=== PATIENT | female | born 1940 | race Caucasian/White ===

== ENCOUNTER 2024-03-29 14:51 | Inpatient (IN) | payer OTHER ==
[~2024-03-29] VITALS: Ht 157.5 cm; Wt 94.5 kg
[2024-03-29] MEDS ORDERED: KETOROLAC TROMETHAMINE 15 MG INJ ONE (15:10)
[2024-03-29] MEDS ORDERED: METOCLOPRAMIDE HCL 10 MG/2 ML VIAL ONE (15:11)
[2024-03-29] MEDS: KETOROLAC TROMETHAMINE 15 MG INJ IVP ONE (15:16)
[2024-03-29] MEDS: METOCLOPRAMIDE HCL 10 MG/2 ML VIAL IV ONE (15:16)
[2024-03-29 15:18] LABS: BASOPHILS % (AUTO) 0.2 % (0.0-2.0); EOSINOPHILS % (AUTO) 0.2 % (0.0-7.0); HEMATOCRIT 47.5 % (31.2-41.9); HEMOGLOBIN 15.3 g/dL (10.9-14.3); LYMPHOCYTES % (AUTO) 4.3 % (20.5-51.5); MEAN CORPUSCULAR HEMOGLOBIN 26.6 uug (24.7-32.8); MEAN CORPUSCULAR HGB CONC 32 g/dL (32.3-35.6); MEAN CORPUSCULAR VOLUME 82.4 fL (75.5-95.3); MONOCYTES # (AUTO) 1.1 K/uL (0.1-1.30); MONOCYTES % (AUTO) 4.8 % (0.0-11.0); NEUTROPHILS # (AUTO) 21.4 K/uL (1.8-8.9); NEUTROPHILS % (AUTO) 90.5 % (38.5-71.5); PLATELET COUNT (AUTO) 255 K/uL (179-408); RED BLOOD CELL COUNT(AUTO) 5.76 MIL/uL (3.63-4.92); RED CELL DISTRIBUTION WIDTH 15.4 % (12.3-17.7); WHITE BLOOD COUNT (AUTO) 23.7 K/uL (3.8-11.8)
[2024-03-29] MEDS ORDERED: ACET325C7 PO (15:19)
[2024-03-29] MEDS ORDERED: BENZ200C53 PO (15:19)
[2024-03-29] MEDS ORDERED: MULT-594 PO (15:19)
[2024-03-29] MEDS ORDERED: CHOL500062 PO (15:19)
[2024-03-29] MEDS ORDERED: CYAN100T9 PO (15:19)
[2024-03-29] MEDS ORDERED: CALC600T35 PO (15:19)
[2024-03-29] MEDS ORDERED: ASPI81TA31 PO (15:19)
[2024-03-29] MEDS ORDERED: GABA300C PO (15:19)
[2024-03-29] MEDS ORDERED: CLOT15CR27 TP (15:19)
[2024-03-29] MEDS ORDERED: ATOR10TA PO (15:19)
[2024-03-29] MEDS ORDERED: [UNRECOGNIZED DRUG - OTHER] PO (15:19)
[2024-03-29 15:23] LABS: DIFFERENTIAL COMMENT 1
[2024-03-29 15:36] LABS: ALANINE AMINOTRANSFERASE 17 U/L (14-59); ALKALINE PHOSPHATASE 100 U/L (50-136); ASPARTATE AMINOTRANSFERASE 9 U/L (15-37); BILIRUBIN,DIRECT 0.2 mg/dL (0.0-0.2); BILIRUBIN,TOTAL 0.6 mg/dL (0.2-1.0); CALCIUM 9.3 mg/dL (8.5-10.1); CARBON DIOXIDE 26 mmol/L (21-32); CHLORIDE 104 mmol/L (98-107); CREATININE 0.9 mg/dL (0.6-1.3); GLUCOSE 137 mg/dL (74-106); LIPASE 62 U/L (16-77); SODIUM SERUM 143 mmol/L (136-145); TOTAL PROTEIN, SERUM 7.6 g/dL (6.4-8.2); UREA NITROGEN, BLOOD 28 mg/dL (7-18)
[2024-03-29] MEDS ORDERED: HYDROMORPHONE 1 MG/1 ML DISP.SYRIN ONE (16:01)
[2024-03-29] MEDS ORDERED: CEFTRIAXONE /D5W 50ML IVPB **ER PYXIS IV ONE (16:01)
[2024-03-29] MEDS: HYDROMORPHONE 1 MG/1 ML DISP.SYRIN IV ONE (16:07)
[2024-03-29] MEDS: CEFTRIAXONE 1 G in IV DEXTROSE 5% 50 ML IV ONE (16:08)
[2024-03-29] MEDS ORDERED: METRONIDAZOLE 500 MG/NS 100ML 100 ML IV ONE (16:22)
[2024-03-29] MEDS: METRONIDAZOLE 500 MG/NS 100ML 100 ML IV ONE (16:31)
[2024-03-29 21:00] VITALS: BP 137/68; TEMP 97.4; O2SAT 97
[2024-03-29 23:00] VITALS: BP 150/71; TEMP 97.6; O2SAT 95
[2024-03-30] VITALS: BP 132/70; TEMP 97.7; O2SAT 92
[2024-03-30] MEDS: MORPHINE SULFATE 2 MG/1 ML DISP.SYRIN IM PRN (00:09)
[2024-03-30] MEDS: PIPERACILLIN SODIUM/TAZOBACTAM 3.375 G in IV DEXTROSE 5% 50 ML IV ONE ×2 (00:15→08:49)
[2024-03-30] MEDS: IV D5 1/2 NS 1000 ML 1,000 ML IV PRN (00:15)
[2024-03-30] MEDS: ENOXAPARIN SODIUM 40 MG/0.4 ML DISP.SYRIN SQ SCH (00:32)
[2024-03-30] MEDS ORDERED: VANCOMYCIN IV 200 ML ONE (00:39)
[2024-03-30] MEDS ORDERED: PIPERACILLIN SODIUM/TAZO 3.375 GM VIAL ONE (00:39)
[2024-03-30] MEDS: VANCOMYCIN IV 1,000 MG in IV DEXTROSE 5% 250 ML IV ONE (00:45)
[2024-03-30 04:00] VITALS: BP 122/83; TEMP 98; O2SAT 95
[2024-03-30 04:42] LABS: *CLARITY,URINE CLEAR (CLEAR); *COLOR,URINE AMBER (YELLOW); *KETONES,URINE TRACE (NEGATIVE); *PROTEIN,URINE 1+ (NEGATIVE); *UROBILINOGEN,URINE 0.2 E.U./dl (NORMAL); LEUKOCYTE ESTERASE ,URINE NEGATIVE (NEGATIVE); NITRITE, URINE NEGATIVE (NEGATIVE); UGLUCOSE NEGATIVE (NEGATIVE)
[2024-03-30 04:43] LABS: *BILIRUBIN,URIN 1+ (NEGATIVE); *BLOOD, URINE TRACE (NEGATIVE)
[2024-03-30] MEDS: MORPHINE SULFATE 2 MG/1 ML DISP.SYRIN IV PRN (05:22)
[2024-03-30 05:41] LABS: BACTERIA,URINE FEW /HPF (NONE SEEN); WBC,URINE NONE SEEN /HPF (0-3)
[2024-03-30 05:42] LABS: SQUAMOUS EPITHELIAL CELL,UR MODERATE /HPF (NONE SEEN)
[2024-03-30 06:48] LABS: BASOPHILS % (AUTO) 0.1 % (0.0-2.0); EOSINOPHILS % (AUTO) 0.1 % (0.0-7.0); HEMATOCRIT 43.4 % (31.2-41.9); LYMPHOCYTES # (AUTO) 0.9 K/uL (0.8-4.8); LYMPHOCYTES % (AUTO) 3.9 % (20.5-51.5); MEAN CORPUSCULAR HEMOGLOBIN 26.5 uug (24.7-32.8); MEAN CORPUSCULAR HGB CONC 32 g/dL (32.3-35.6); MEAN CORPUSCULAR VOLUME 82.2 fL (75.5-95.3); MONOCYTES # (AUTO) 2.2 K/uL (0.1-1.30); MONOCYTES % (AUTO) 9.9 % (0.0-11.0); NEUTROPHILS # (AUTO) 18.9 K/uL (1.8-8.9); PLATELET COUNT (AUTO) 206 K/uL (179-408); RED BLOOD CELL COUNT(AUTO) 5.28 MIL/uL (3.63-4.92); RED CELL DISTRIBUTION WIDTH 15.4 % (12.3-17.7); WHITE BLOOD COUNT (AUTO) 21.9 K/uL (3.8-11.8)
[2024-03-30 06:52] LABS: DIFFERENTIAL COMMENT 1
[2024-03-30 07:03] LABS: ALANINE AMINOTRANSFERASE 54 U/L (14-59); ALBUMIN 3.1 g/dL (3.4-5.0); ALKALINE PHOSPHATASE 102 U/L (50-136); ASPARTATE AMINOTRANSFERASE 40 U/L (15-37); BILIRUBIN,TOTAL 0.7 mg/dL (0.2-1.0); CALCIUM 7.9 mg/dL (8.5-10.1); CARBON DIOXIDE 23 mmol/L (21-32); CHLORIDE 104 mmol/L (98-107); CREATININE 0.8 mg/dL (0.6-1.3); GLUCOSE 173 mg/dL (74-106); MAGNESIUM 2.3 mg/dL (1.8-2.4); PHOSPHOROUS 3.6 mg/dL (2.5-4.9); POTASSIUM 3.4 mmol/L (3.5-5.1); SODIUM SERUM 137 mmol/L (136-145); TOTAL PROTEIN, SERUM 6.1 g/dL (6.4-8.2); UREA NITROGEN, BLOOD 31 mg/dL (7-18)
[2024-03-30 07:26] LABS: THYROID STIMULATING HORMONE 2.292 mIU/mL (0.358-3.740)
[2024-03-30 07:29] VITALS: BP 156/76; TEMP 98.4; O2SAT 95
[2024-03-30] MEDS: ONDANSETRON 4 MG/2 ML VIAL IV PRN (07:43)
[2024-03-30] MEDS: PANTOPRAZOLE SODIUM 40 MG VIAL IV SCH (08:49)
[2024-03-30] MEDS ORDERED: CYAN100085 PO (10:25)
[2024-03-30] MEDS ORDERED: GABA-532 PO (10:25)
[2024-03-30] MEDS ORDERED: ERYT250C69 PO (10:25)
[2024-03-30] MEDS ORDERED: CLIN60GE2 TP (10:25)
[2024-03-30] MEDS ORDERED: CYAN-51 PO (10:27)
[2024-03-30] MEDS: ACETAMINOPHEN 650 MG SUPP.RECT RC PRN (11:04)
[2024-03-30 11:16] VITALS: BP 133/73; TEMP 98.4; O2SAT 92
[2024-03-30] MEDS: POTASSIUM CHLORIDE 50 ML IV SCH (13:32)
[2024-03-30 15:22] VITALS: BP 142/60; TEMP 98.4; O2SAT 96
[2024-03-30] MEDS: PIPERACILLIN SODIUM/TAZOBACTAM 3.375 G in IV DEXTROSE 5% 50 ML IV SCH (15:54)
[2024-03-30 20:50] VITALS: BP 105/74; TEMP 98.2; O2SAT 95
[2024-03-31] MEDS: VANCOMYCIN IV 1,000 MG in IV DEXTROSE 5% 250 ML IV SCH (00:32)
[2024-03-31] MEDS: ACETAMINOPHEN 325 MG TABLET PO PRN (00:52)
[2024-03-31 04:00] VITALS: BP 111/60; TEMP 98.2; O2SAT 95
[2024-03-31 07:50] LABS: BASOPHILS # (AUTO) 0.1 K/UL (0.0-0.2); BASOPHILS % (AUTO) 0.4 % (0.0-2.0); EOSINOPHILS # (AUTO) 0.1 K/uL (0.0-0.7); EOSINOPHILS % (AUTO) 0.5 % (0.0-7.0); HEMATOCRIT 39.6 % (31.2-41.9); HEMOGLOBIN 12.7 g/dL (10.9-14.3); LYMPHOCYTES # (AUTO) 1.3 K/uL (0.8-4.8); LYMPHOCYTES % (AUTO) 8.4 % (20.5-51.5); MEAN CORPUSCULAR HEMOGLOBIN 26.3 uug (24.7-32.8); MEAN CORPUSCULAR HGB CONC 32 g/dL (32.3-35.6); MONOCYTES # (AUTO) 1.2 K/uL (0.1-1.30); MONOCYTES % (AUTO) 7.5 % (0.0-11.0); NEUTROPHILS # (AUTO) 13.1 K/uL (1.8-8.9); NEUTROPHILS % (AUTO) 83.2 % (38.5-71.5); PLATELET COUNT (AUTO) 182 K/uL (179-408); RED BLOOD CELL COUNT(AUTO) 4.83 MIL/uL (3.63-4.92); RED CELL DISTRIBUTION WIDTH 15.6 % (12.3-17.7); WHITE BLOOD COUNT (AUTO) 15.7 K/uL (3.8-11.8)
[2024-03-31 08:04] LABS: CALCIUM 7.4 mg/dL (8.5-10.1); CARBON DIOXIDE 27 mmol/L (21-32); CHLORIDE 108 mmol/L (98-107); CREATININE 0.7 mg/dL (0.6-1.3); DIFFERENTIAL COMMENT 1; GLUCOSE 98 mg/dL (74-106); MAGNESIUM 2.1 mg/dL (1.8-2.4); PHOSPHOROUS 2.2 mg/dL (2.5-4.9); POTASSIUM 3.9 mmol/L (3.5-5.1); SODIUM SERUM 141 mmol/L (136-145); UREA NITROGEN, BLOOD 16 mg/dL (7-18)
[2024-03-31] MEDS ORDERED: DOCU-141 PO (11:09)
[2024-03-31] MEDS ORDERED: SENN8.6T19 PO (11:09)
[2024-03-31] MEDS ORDERED: LACT1CAP72 PO (11:09)
[2024-03-31] MEDS ORDERED: METR500T PO (11:09)
[2024-03-31] MEDS ORDERED: CIPR-262 PO (11:09)
[2024-03-31 12:00] VITALS: BP 134/63; TEMP 98.6; O2SAT 98
[2024-03-31] MEDS: PIPERACILLIN SODIUM/TAZOBACTAM 3.375 G in IV DEXTROSE 5% 50 ML IV SCH (12:00)
[2024-03-31] MEDS ORDERED: VANCOMYCIN IV 1,000 MG in IV DEXTROSE 5% 250 ML IV SCH (19:00)
== END 2024-03-31 12:30 | disposition home or self-care (01) | DRG 392 ==
LOC: ER 14:52 → MEDSURG3 20:18 → TELE3 23:25 → MEDSURG3 03-30 23:35
PROVIDERS: ADMIT Internal Medicine; ATTEND Internal Medicine
DX: K52.89 Other specified noninfective gastroenteritis and colitis (principal); D68.59 Other primary thrombophilia; B37.2 Candidiasis of skin and nail; K59.09 Other constipation; Z85.3 Personal history of malignant neoplasm of breast; Z74.09 Other reduced mobility; Z80.0 Family history of malignant neoplasm of digestive organs; N99.4 Postprocedural pelvic peritoneal adhesions; Z90.711 Acquired absence of uterus with remaining cervical stump; R26.2 Difficulty in walking, not elsewhere classified; N32.81 Overactive bladder; R79.89 Other specified abnormal findings of blood chemistry; K57.30 Diverticulosis of large intestine without perforation or abscess without bleeding; M15.9 Polyosteoarthritis, unspecified; D72.829 Elevated white blood cell count, unspecified
CPT/HCPCS: 36415; 71045; 83605; 83690; 83735; 84100; 84443; 84484; 85025; 85730; 87040; 93005; G0378; J0696; J1170; J1650; J1885; J2270; J2405; J2470; J2543; J2765; J3370; J3480; J3490; J7042; J7050; J7070